=== PATIENT | female | born 1985 | race Caucasian/White ===

== ENCOUNTER → 2016-12-01 | Outpatient (CLI) | payer OTHER ==
[2016-12-01 08:51] LABS: HEMATOCRIT 44.8 % (37.0-47.0); HEMOGLOBIN 14.9 gm/dL (12.0-15.0); MCH 28.8 pg (26.0-34.0); MCHC 33.3 g/dL (28.0-37.0); MCV 86.6 fL (80.0-100.0); RBC 5.17 mil/uL (4.20-5.00); RDW 12.8 % (10.5-14.5); WBC 8.7 thou/uL (4.0-11.0)
[2016-12-01 09:08] LABS: ALBUMIN 4.2 g/dL (3.4-5.0); ALKALINE PHOSPHATASE 126 U/L (46-116); ANION GAP 6 mmol/L (7-16); BUN 13 mg/dL (7-18); CALCIUM 9.5 mg/dL (8.5-10.1); CHLORIDE 104 mmol/L (98-107); CHOLESTEROL 203 mg/dL (<200); CO2 30 mmol/L (21-32); CREATININE 0.7 mg/dL (0.6-1.0); GLUCOSE 93 mg/dL (74-106); HDL CHOLESTEROL 71 mg/dL (>40); LDL CHOLESTEROL 113 mg/dL (<100); POTASSIUM 4.5 mmol/L (3.5-5.1); SGOT 15 U/L (15-37); SGPT 15 U/L (30-65); SODIUM 140 mmol/L (136-145); TC:HDL 2.9 Ratio (Not establshd); TOTAL BILIRUBIN 0.5 mg/dL (<0.1-1.0); TOTAL PROTEIN 7.9 g/dL (6.4-8.2); TRIGLYCERIDE 96 mg/dL (<150); VLDL 19 mg/dL (<40)
== END ==
LOC: LABMALL 07:50
PROVIDERS: Internal Medicine
DX: Z00.00 Encounter for general adult medical examination without abnormal findings (principal)